=== PATIENT | male | born 1990 | race African-American/Black ===

== ENCOUNTER 2017-05-06 12:53 | Emergency (ER) | payer SELFPAY ==
[~2017-05-06] VITALS: Ht 172.7 cm; Wt 118.0 kg
[2017-05-06 12:54] VITALS: BP 168/109; PULSE 64; RESP 16; TEMP 98.5; O2SAT 99
[2017-05-06 13:36] LABS: AUTOMATED NEUTROPHIL # 2.9 TH/MM3 (1.8-7.7); BASOPHIL % 0.7 % (0.0-2.0); EOSINOPHIL # 0.2 TH/MM3 (0-0.4); HEMATOCRIT 44.4 % (39.0-51.0); HEMO FLAGS DIFF FINAL; LYMPH % 37.6 % (9.0-44.0); LYMPHOCYTE # 2.2 TH/MM3 (1.0-4.8); MEAN CELL VOLUME 85.6 FL (80.0-100.0); MEAN CORPUSCULAR HEMOGLOBIN 29.2 PG (27.0-34.0); MEAN CORPUSCULAR HGB CONC 34.2 % (32.0-36.0); MONO % 7.9 % (0.0-8.0); NEUT % 49.8 % (16.0-70.0); PLATELET COUNT 276 TH/MM3 (150-450); RED BLOOD COUNT 5.18 MIL/MM3 (4.50-5.90); RED CELL DISTRIBUTION WIDTH 15.1 % (11.6-17.2); WHITE BLOOD COUNT 5.8 TH/MM3 (4.0-11.0)
[2017-05-06 13:47] LABS: APTT (PATIENT) 28.9 SEC (24.3-30.1); INTERNATIONAL NORMALIZED RATIO 0.9 RATIO; PROTHROMBIN TIME - PATIENT 10.2 SEC (9.8-11.6)
[2017-05-06 13:57] LABS: ALT (GPT) 69 U/L (12-78)
[2017-05-06 14:00] LABS: ALKALINE PHOSPHATASE 94 U/L (45-117); TOTAL BILIRUBIN ADULT 0.3 MG/DL (0.2-1.0)
[2017-05-06 14:03] LABS: ANION GAP 3 MEQ/L (5-15); AST (GOT) 75 U/L (15-37); BICARBONATE 30.1 MEQ/L (21.0-32.0); BLOOD UREA NITROGEN 12 MG/DL (7-18); CHLORIDE 104 MEQ/L (98-107); GLOMERULAR FILTRATION RATE 67 ML/MIN (>89); SODIUM (NA) 137 MEQ/L (136-145)
[2017-05-06] MEDS ORDERED: SODIUM CHLOR 0.9% 1000 ML INJ 1,000 ML IV ONE (15:15)
--- NOTE | 2017-05-06 15:22 | PD ---
HPI Chief Complaint: GI Complaint Time Seen by Provider: 14:45 Travel History International Travel<30 days: No Contact w/Intl Traveler<30days: No Traveled to known affect area: No History of Present Illness HPI Patient is a 27-year-old male who presents to emergency room with his mother for evaluation of nausea, vomiting and diarrhea. Patient reports that for the past 3-4 days, he has had dark red stools as well as has been vomiting up dark red blood. Patient reports that he has had multiple episodes of nausea, vomiting and diarrhea. He reports that he does not drink alcohol, reports that he currently is not taking any medications including anticoagulants, reports that the only thing bothering him right now his that he has slight pains to his epigastrium. Patient reports that he has not follow-up with gastrointestinal doctor in the past, no history of colitis or diverticulitis. Patient denies any recent travels or trips. Denies fever/chills. Patient reports that over the past 3-4 days, the diarrhea has improved and he has formed stools. Denies history of hemorrhoids PFSH Past Medical History Medical History: Denies Significant Hx Past Surgical History Surgical History: No Previous Surgery Social History Alcohol Use: No Tobacco Use: No Substance Use: No Allergies-Medications (Allergen,Severity, Reaction): Coded Allergies: No Known Allergies (Unverified , 05/06/17) Reported Meds & Prescriptions Reported Meds & Active Scripts Active Protonix (Pantoprazole Sodium) 40 Mg Tab 40 Mg PO DAILY Review of Systems General / Constitutional: No: Fever, Chills Eyes: No: Visual changes HENT: No: Headaches Cardiovascular: No: Chest Pain or Discomfort Respiratory: No: Shortness of Breath Gastrointestinal: Positive: Nausea, Vomiting, Diarrhea, Abdominal Pain, Hematemesis, Hematochezia, No: Constipation, Dysphagia Genitourinary: No: Dysuria Musculoskeletal: No: Pain Skin: No Rash Neurologic: No: Weakness Psychiatric: No: Depression Endocrine: No: Polydipsia Hematologic/Lymphatic: No: Easy Bruising Physical Exam Narrative GENERAL: NAD SKIN: Focused skin assessment warm/dry. HEAD: Atraumatic. Normocephalic. EYES: Pupils equal and round. No scleral icterus. No injection or drainage. ENT: No nasal bleeding or discharge. Mucous membranes pink and moist. NECK: Trachea midline. No JVD. CARDIOVASCULAR: Regular rate and rhythm. No murmur appreciated. RESPIRATORY: No accessory muscle use. Clear to auscultation. Breath sounds equal bilaterally. GASTROINTESTINAL: Abdomen soft, non-tender, nondistended. Hepatic and splenic margins not palpable. RECTAL: exam performed with JACKELINE Alegria at bedside, light brown stool, lightly heme positive MUSCULOSKELETAL: No obvious deformities. No clubbing. No cyanosis. No edema. NEUROLOGICAL: Awake and alert. No obvious cranial nerve deficits. Motor grossly within normal limits. Normal speech. PSYCHIATRIC: Appropriate mood and affect; insight and judgment normal. Data Data Last Documented VS Vital Signs Date Time Temp Pulse Resp B/P (MAP) Pulse Ox O2 Delivery O2 Flow Rate FiO2 05/06/17 12:54 98.5 64 16 168/109 (128) 99 Room Air Orders Orders Complete Blood Count With Diff (05/06/17 12:59) Comprehensive Metabolic Panel (05/06/17 12:59) Lipase (05/06/17 12:59) Prothrombin Time / Inr (Pt) (05/06/17 12:59) Act Partial Throm Time (Ptt) (05/06/17 12:59) Ct Abd/Pel W/O Iv Contrast (05/06/17 15:05) Sodium Chlor 0.9% 1000 Ml Inj (Ns 1000 M (05/06/17 15:15) Labs Laboratory Tests Test 05/06/17 13:10 White Blood Count 5.8 TH/MM3 Red Blood Count 5.18 MIL/MM3 Hemoglobin 15.2 GM/DL Hematocrit 44.4 % Mean Corpuscular Volume 85.6 FL Mean Corpuscular Hemoglobin 29.2 PG Mean Corpuscular Hemoglobin Concent 34.2 % Red Cell Distribution Width 15.1 % Platelet Count 276 TH/MM3 Mean Platelet Volume 8.5 FL Neutrophils (%) (Auto) 49.8 % Lymphocytes (%) (Auto) 37.6 % Monocytes (%) (Auto) 7.9 % Eosinophils (%) (Auto) 4.0 % Basophils (%) (Auto) 0.7 % Neutrophils # (Auto) 2.9 TH/MM3 Lymphocytes # (Auto) 2.2 TH/MM3 Monocytes # (Auto) 0.5 TH/MM3 Eosinophils # (Auto) 0.2 TH/MM3 Basophils # (Auto) 0.0 TH/MM3 CBC Comment DIFF FINAL Differential Comment Prothrombin Time 10.2 SEC Prothromb Time International Ratio 0.9 RATIO Activated Partial Thromboplast Time 28.9 SEC Blood Urea Nitrogen 12 MG/DL Creatinine 1.55 MG/DL Random Glucose 104 MG/DL Total Protein 8.1 GM/DL Albumin 3.6 GM/DL Calcium Level 8.9 MG/DL Alkaline Phosphatase 94 U/L Aspartate Amino Transf (AST/SGOT) 75 U/L Alanine Aminotransferase (ALT/SGPT) 69 U/L Total Bilirubin 0.3 MG/DL Sodium Level 137 MEQ/L Potassium Level 4.0 MEQ/L Chloride Level 104 MEQ/L Carbon Dioxide Level 30.1 MEQ/L Anion Gap 3 MEQ/L Estimat Glomerular Filtration Rate 67 ML/MIN Lipase 225 U/L MDM Medical Decision Making Medical Screen Exam Complete: Yes Emergency Medical Condition: Yes Medical Record Reviewed: Yes Interpretation(s) Vital Signs Date Time Temp Pulse Resp B/P (MAP) Pulse Ox O2 Delivery O2 Flow Rate FiO2 05/06/17 12:54 98.5 64 16 168/109 (128) 99 Room Air Differential Diagnosis Colitis, gastroenteritis, viral syndrome Narrative Course During the course of the patients emergency department visit, the patients history, examination, and differential diagnosis were reviewed with the patient. The patient was placed on a electronic device monitor with oximetry and frequent blood pressure monitoring. The patient had a 20-gauge IV access obtained and blood work sent for analysis. The patient was initially provided IV fluid The patients laboratory studies were reviewed and remarkable for: CBC & BMP Diagram 05/06/17 13:10 Total Protein 8.1, Albumin 3.6, Calcium Level 8.9, Alkaline Phosphatase 94, Aspartate Amino Transf (AST/SGOT) 75 H, Alanine Aminotransferase (ALT/SGPT) 69, Total Bilirubin 0.3 Patient with light brown heme positive stools, CT of the abdomen and pelvis was ordered. Radiology studies were reviewed and remarkable for: Last Impressions Abdomen/Pelvis CT 05/06/17 1505 Signed Impressions: Service Date/Time: Saturday, May 06, 2017 15:28 - CONCLUSION: 1. No abnormality is identified to explain the clinical symptoms on this noncontrast examination. 2. Focal anterior abdominal wall laxity/hernia at the umbilical region. Mekhi Saldana MD Hemoglobin 15.2, hematocrit 44.4, CBC 5.8, platelets 276 BMP with sodium 137, potassium 4.0, chloride 104, BUN 12, creatinine 1.55, glucose 104 Patient's symptoms most likely from gastroenteritis, patient's hemoglobin is stable this time, vital signs are stable, plan for patient to follow up with GI as outpatient. Patient does have heme positive light brown stool. Given his initial symptoms of n/v/d that lead to bloody n/v/d, symptoms are most likely due to gastritis/gastroenteritis. Patient will be started on protonix. Abdomen is soft, nontender, nondistended, no peritoneal signs at this time. Signs and symptoms of when to return to the ER was reviewed with patient in detail. Patient is stable for discharge. Diagnosis Primary Impression: GI bleed Qualified Codes: K92.2 - Gastrointestinal hemorrhage, unspecified Additional Impressions: Gastroenteritis Gastritis and gastroduodenitis Dehydration Referrals: Carlton Dyson MD Patient Instructions: General Instructions Additional Instructions: Please provide patient with a copy of their lab work and studies at discharge* * Please follow up with your primary care doctor in 2-3 days Return to the ER if symptoms worsen or progress Return to the ER as needed Please follow-up with a advertising dispatch clerk in a week Med/Other Pt SpecificInfo: Prescription(s) given Scripts Ondansetron (Zofran) 4 Mg Tab 4 MG PO Q6HR Y for NAUSEA OR VOMITING, #20 TAB 0 Refills Prov: Shawna Kaur DO 05/06/17 Pantoprazole (Protonix) 40 Mg Tab 40 MG PO DAILY for Reflux, #30 TAB 0 Refills Prov: Shawna Kaur DO 05/06/17 Disposition: 01 DISCHARGE HOME Condition: Stable Shawna Kaur DO May 06, 2017 15:22
--- NOTE | 2017-05-06 15:50 | RADRPT ---
EXAM DATE/TIME: 05/06/2017 15:28 [facility] COMPARISON: No previous studies available for comparison. INDICATIONS : Bloody stool for 4 days ORAL CONTRAST: No oral contrast ingested. RADIATION DOSE: 23.43 CTDIvol (mGy) MEDICAL HISTORY : None SURGICAL HISTORY : None. ENCOUNTER: Initial ACUITY: 4 - 6 days PAIN SCALE: 0/10 LOCATION: abdomen TECHNIQUE: Volumetric scanning of the abdomen and pelvis was performed. Using automated exposure control and ad justment of the mA and/or kV according to patient size, radiation dose was kept as low as reasonably achievable to obtain optimal diagnostic quality images. DICOM format image data is available electro nically for review and comparison. FINDINGS: LOWER LUNGS: The visualized lower lungs are clear. LIVER: Homogeneous density without lesion. There is no dilation of the biliary tree. No calcified gallston es. SPLEEN: Normal size without lesion. PANCREAS: Within normal limits. KIDNEYS: Normal in size and shape. There is no mass, stone, or hydronephrosis. ADRENAL GLANDS: Within normal limits. VASCULAR: There is no aortic aneurysm. BOWEL/MESENTERY: The stomach, small bowel, and colon demonstrate no acute abnormality. There is no free intraperitone al air or fluid. There are clips at the base of the cecum related to prior appendectomy. ABDOMINAL WALL: There is anterior abdominal wall laxity/hernia in the umbilical region containing fat. RETROPERITONEUM: There is no lymphadenopathy. BLADDER: No wall thickening or mass. REPRODUCTIVE: Within normal limits. INGUINAL: There is no lymphadenopathy or hernia. MUSCULOSKELETAL: No acute abnormality. CONCLUSION: 1. No abnormality is identified to explain the clinical symptoms on this noncontrast examination. 2. Focal anterior abdominal wall laxity/hernia at the umbilical region. Mekhi Saldana MD on May 06, 2017 at 15:43 Board Certified Radiologist. This report was verified electronically.
[2017-05-06] MEDS ORDERED: PROT40TA PO (16:02)
[2017-05-06] MEDS ORDERED: ZOFR4TAB PO (16:28)
== END 2017-05-06 17:09 | disposition home or self-care (01) ==
LOC: NEPD 12:53
DX: K52.9 Noninfective gastroenteritis and colitis, unspecified (principal); E86.0 Dehydration; K29.91 Gastroduodenitis, unspecified, with bleeding; K29.71 Gastritis, unspecified, with bleeding
CPT/HCPCS: 74176; 80053; 83690; 85025; 85610; 85730; 99284; J7030

== ENCOUNTER 2017-07-08 18:12 | Emergency (ER) | payer SELFPAY ==
[~2017-07-08] VITALS: Ht 172.7 cm; Wt 113.5 kg
[~2017-07-08 18:12] MED LIST: PROT40TA PO; ZOFR4TAB PO
[2017-07-08 18:13] VITALS: BP 169/104; PULSE 105; RESP 20; TEMP 100.2; O2SAT 96
[2017-07-08] MEDS ORDERED: IBUPROFEN 800 MG TAB PO ONE (18:45)
--- NOTE | 2017-07-08 21:15 | PD ---
HPI Chief Complaint: Cold / Flu Symptoms Time Seen by Provider: 18:31 Travel History International Travel<30 days: No Contact w/Intl Traveler<30days: No Traveled to known affect area: No History of Present Illness HPI Pt is a 27-year-old male presenting to the emergency department for evaluation of headache, chills, subjective fevers, chest congestion, cough, nasal congestion. Patient states his symptoms started Thursday night. He denies any nausea, vomiting, abdominal pain. Patient has not taken any medication to alleviate his symptoms. Onset was gradual, getting progressively worse which is what prompted his visit to the emergency department. There are no alleviating factors to this point. PFSH Past Medical History Medical History: Denies Significant Hx Social History Alcohol Use: No Tobacco Use: No Substance Use: No Allergies-Medications (Allergen,Severity, Reaction): Coded Allergies: No Known Allergies (Unverified , 05/06/17) Reported Meds & Prescriptions Reported Meds & Active Scripts Active Zofran (Ondansetron HCl) 4 Mg Tab 4 Mg PO Q6HR PRN Protonix (Pantoprazole Sodium) 40 Mg Tab 40 Mg PO DAILY Review of Systems Except as stated in HPI: all other systems reviewed are Neg General / Constitutional: Positive: Fever, Chills HENT: Positive: Headaches, Congestion Respiratory: Positive: Cough Musculoskeletal: Positive: Myalgias Physical Exam Narrative GENERAL: Well-developed, well-nourished. Presenting in no acute distress. SKIN: Warm and dry. HEAD: Normocephalic. EYES: No scleral icterus. No injection or drainage. CARDIOVASCULAR: Tachycardic RESPIRATORY: No accessory muscle use. Data Data Last Documented VS Vital Signs Date Time Temp Pulse Resp B/P (MAP) Pulse Ox O2 Delivery O2 Flow Rate FiO2 07/08/17 18:13 100.2 105 20 169/104 (125) 96 Room Air Orders Orders Ibuprofen (Motrin) (07/08/17 18:45) MDM Medical Decision Making Medical Screen Exam Complete: Yes Emergency Medical Condition: Yes Interpretation(s) Vital Signs Date Time Temp Pulse Resp B/P (MAP) Pulse Ox O2 Delivery O2 Flow Rate FiO2 07/08/17 18:13 100.2 105 20 169/104 (125) 96 Room Air Differential Diagnosis Viral syndrome versus influenza versus pneumonia versus other Narrative Course Patient is a 24-year-old male that presented to emergency room for evaluation of cold flu symptoms that started 2 days ago. Patient is mildly tachycardic and febrile on arrival. Ibuprofen ordered in triage and given. Patient was called to be bedded in room, he was not in the emergency department after several attempts. Patient left AMA Diagnosis Primary Impression: Left against medical advice Naina Trammell Jul 08, 2017 21:14
== END 2017-07-08 21:10 | disposition left against medical advice (07) ==
LOC: NED 18:12
DX: R51 Headache (principal); Z53.21 Procedure and treatment not carried out due to patient leaving prior to being seen by health care provider
CPT/HCPCS: 99281

== ENCOUNTER 2017-09-08 08:53 | Emergency (ER) | payer SELFPAY ==
[~2017-09-08] VITALS: Ht 172.7 cm; Wt 120.0 kg
[2017-09-08 09:00] VITALS: BP 141/81; PULSE 81; RESP 16; TEMP 98.9; O2SAT 99
[2017-09-08] MEDS ORDERED: IBUP1TAB7 PO (10:25)
--- NOTE | 2017-09-08 10:26 | PD ---
HPI Chief Complaint: Pain: Acute or Chronic Time Seen by Provider: 10:03 Travel History International Travel<30 days: No Contact w/Intl Traveler<30days: No Traveled to known affect area: No History of Present Illness HPI 37-year-old male here with left lateral rib pain 2 weeks. Denies injury or trauma. No chest pain or shortness of breath. Symptoms severity is mild. He reports pain is only present when he twists and turns or palpates the area. Pain is alleviated with rest. He has not attempted any OTC medications for symptom management. [facility] Past Medical History Medical History: Denies Significant Hx Social History Alcohol Use: No Tobacco Use: No Substance Use: No Allergies-Medications (Allergen,Severity, Reaction): Coded Allergies: No Known Allergies (Unverified , 05/06/17) Reported Meds & Prescriptions Reported Meds & Active Scripts Active Ibuprofen 800 Mg Tab 800 Mg PO Q6HR PRN Zofran (Ondansetron HCl) 4 Mg Tab 4 Mg PO Q6HR PRN Protonix (Pantoprazole Sodium) 40 Mg Tab 40 Mg PO DAILY Review of Systems Except as stated in HPI: all other systems reviewed are Neg General / Constitutional: No: Fever Eyes: No: Visual changes HENT: No: Headaches Cardiovascular: No: Chest Pain or Discomfort Respiratory: No: Shortness of Breath Gastrointestinal: No: Abdominal Pain Genitourinary: No: Dysuria Physical Exam Narrative GENERAL: Alert well-appearing 27-year-old male SKIN: Warm and dry. HEAD: Normocephalic. EYES: No injection or drainage. NECK: Supple CARDIOVASCULAR: Regular rate and rhythm. No murmur appreciated RESPIRATORY: Breath sounds equal bilaterally. No accessory muscle use. Mild TTP left lower lateral ribs. No crepitus. Equal and even and chest rise. GASTROINTESTINAL: Abdomen soft, non-tender, nondistended. No rebound or guarding MUSCULOSKELETAL: No cyanosis, or edema. BACK: Nontender without obvious deformity. No CVA tenderness. Data Data Last Documented VS Vital Signs Date Time Temp Pulse Resp B/P (MAP) Pulse Ox O2 Delivery O2 Flow Rate FiO2 09/08/17 09:00 98.9 81 16 141/81 (101) 99 MDM Medical Decision Making Medical Screen Exam Complete: Yes Emergency Medical Condition: Yes Differential Diagnosis Thoracic strain, costochondritis, rib fracture unlikely, pneumothorax unlikely Narrative Course This is a well-appearing 27-year-old male here with mild left lateral rib pain 2 weeks. He came in for evaluation after being encouraged by his family. His physical exam is essentially benign he has mild tenderness to the left lower lateral ribs. Clear and equal lung sounds. She'll be treated for thoracic strain. Diagnosis Primary Impression: Strain of thoracic region Qualified Codes: S29.019A - Strain of muscle and tendon of unspecified wall of thorax, initial encounter Referrals: Primary Care Physician Additional Instructions: Ibuprofen as needed for pain. Avoid heavy lifting or strenuous activity. Follow-up the primary doctor. Scripts Ibuprofen (Ibuprofen) 800 Mg Tab 800 MG PO Q6HR Y for PAIN, #40 TAB 0 Refills Prov: Monica Saavedra 09/08/17 Disposition: 01 DISCHARGE HOME Condition: Stable Monica Saavedra Sep 08, 2017 10:26
== END 2017-09-08 11:05 | disposition home or self-care (01) ==
LOC: NEPK 08:53
DX: S29.019A Strain of muscle and tendon of unspecified wall of thorax, initial encounter (principal); X58.XXXA Exposure to other specified factors, initial encounter
CPT/HCPCS: 99283